=== PATIENT | male | born 1985 | race Caucasian/White ===

== ENCOUNTER 2017-07-04 16:13 | Emergency (ER) | payer BC, OTHER ==
[~2017-07-04] VITALS: Ht 182.9 cm; Wt 90.9 kg
[2017-07-04 16:15] VITALS: BP 159/99
[2017-07-04 16:40] LABS: HEMATOCRIT 47.3 % (39.2-51.8); WHITE BLOOD COUNT 12.8 x10^3/uL (3.4-10)
[2017-07-04 16:53] LABS: ASPARTATE AMINO TRANSFERASE 21 U/L (15-37); BLOOD UREA NITROGEN 12 mg/dL (7-18)
[2017-07-04 17:04] LABS: HEP B SURF. AB > 1000.0 mIU/mL (0.0-10.0)
[2017-07-04 17:13] LABS: HIV 1&2 ANTIBODY SCREEN Nonreactive (Nonreactive); HIV-1 p24 ANTIGEN Nonreactive (Nonreactive)
== END 2017-07-04 18:11 | disposition home or self-care (01) ==
LOC: ED 16:36
DX: S61.032A Puncture wound without foreign body of left thumb without damage to nail, initial encounter (principal); W46.0XXA Contact with hypodermic needle, initial encounter; Y93.89 Activity, other specified; Y92.238 Other place in hospital as the place of occurrence of the external cause; Y99.8 Other external cause status
CPT/HCPCS: 36415; 80053; 81001; 85025; 86703; 86705; 86706; 86803; 87340; 87899; 99284; G0435